=== PATIENT | male | born 2000 | race Caucasian/White ===

== ENCOUNTER → 2024-10-18 | Outpatient (CLI) | payer OTHER, SELFPAY ==
--- NOTE | 2024-10-18 09:14 | RAD_ITS ---
EXAM: Lumbar spine, two views. CLINICAL HISTORY: Back injury 3 months ago. COMPARISON: None. TECHNIQUE: PA and lateral plain radiographs of the lumbar spine. FINDINGS: Vertebral bodies, intervertebral discs, and posterior elements are unremarkable as visualized. Alignment is anatomic. RAD/Lumbar Spine 2 or 3 Views IMPRESSION: Negative plain lumbar spine series. Reading Location: [place] [id number]
== END | disposition home or self-care (01) ==
LOC: MTRAD 09:13
PROVIDERS: Referring Provider Physician Assistant; Visit Provider Physician Assistant
DX: R52 Pain, unspecified (principal)
CPT/HCPCS: 72100